=== PATIENT | male | born 1950 | race Caucasian/White ===

== ENCOUNTER → 2018-01-25 | Outpatient (CLI) | payer MEDICARE ==
--- NOTE | 2018-01-25 10:05 | RAD ---
Complete abdominal ultrasound 01/25/2018 Indication: Umbilical hernia Discussion: Ultrasound evaluation of the abdomen was performed. Static images are submitted to PACS. Anterior abdominal wall demonstrates no sonographic evidence of hernia. No other focal mass or abnormal fluid collection in the anterior abdominal wall is appreciated. Visualized portions of the pancreas are unremarkable. Gallbladder is normal in appearance without evidence of wall thickening, stones, or sludge. Common bile duct is nondilated at 3 mm. The liver is unremarkable in appearance measuring 15 cm longitudinally. The right kidney measures 13 cm longitudinally. There is a 6 cm cyst in the inferior pole right kidney. A smaller 2 cm cyst is noted in the mid right kidney. There is borderline splenomegaly with the spleen measuring approximately 12.5 cm longitudinally. Left kidney measures 13.2 cm in length and is unremarkable in appearance. Impression: 1. No evidence of ventral hernia is identified sonographically 2. Right renal cysts as described 3. Borderline splenomegaly
== END | disposition home or self-care (01) ==
LOC: US 08:34
PROVIDERS: ATTEND Nurse Practitioner Family
DX: K42.9 Umbilical hernia without obstruction or gangrene (principal); N28.1 Cyst of kidney, acquired
CPT/HCPCS: 76700